=== PATIENT | male | born 1950 | race Caucasian/White ===

== ENCOUNTER → 2018-05-07 08:09 | Outpatient (BNVA) | payer MEDICARE, BC, SELFPAY | PROVIDERS: Visit Provider Student in an Organized Health Care Education/Training Program | DX: Z47.1 Aftercare following joint replacement surgery (principal); Z96.642 Presence of left artificial hip joint | CPT/HCPCS: 99213 ==

== ENCOUNTER 2018-05-07 08:24 | Outpatient (CLI) | payer MEDICARE, BC, SELFPAY ==
--- NOTE | 2018-05-07 08:42 | DI.RAD_ITS ---
SYMPTOMS/DIAGNOSIS: F/U LT JOEL, YEARLY F/U LEFT HIP: Two views were obtained. There is a total hip joint replacement in position on the left. The components appear well seated. No other bony abnormality is seen. Previous right total hip arthroplasty noted in position as well.
== END 2018-05-07 08:44 ==
PROVIDERS: Visit Provider Student in an Organized Health Care Education/Training Program
DX: Z96.642 Presence of left artificial hip joint (principal); Z47.1 Aftercare following joint replacement surgery
CPT/HCPCS: 99213; 73502

== ENCOUNTER → 2022-01-31 14:31 | Outpatient (BNVA) | payer MEDICARE, BC, SELFPAY | PROVIDERS: Visit Provider Student in an Organized Health Care Education/Training Program | DX: M17.12 Unilateral primary osteoarthritis, left knee (principal) | CPT/HCPCS: 99202 ==

== ENCOUNTER 2022-03-14 13:48 | Outpatient (CLI) | payer MEDICARE, BC, SELFPAY ==
--- NOTE | 2022-03-14 13:45 | DI.RAD_ITS ---
Exam(s) XR STANDING ALIGNMENT EXAM: XR STANDING ALIGNMENT CLINICAL HISTORY: PRE OP L TKA. TECHNIQUE: 2D digital imaging was performed. COMPARISON: CR PELVIS AP from 05/02/2017 FINDINGS: 3 views Bilateral hip prostheses again noted. Advanced narrowing medial compartments of both knees, approxim ately equal bilaterally. Milder degenerative changes the lateral. Ankles. No osseous lesions. Bon e density is. Age-appropriate No significant osseous lesions evident IMPRESSION: DATA REPOSITORY: RADIATION DOSE DELIVERED:
--- NOTE | 2022-03-14 14:00 | DI.RAD_ITS ---
Exam(s) XR KNEE LT 1V EXAM: XR KNEE LT 1V CLINICAL HISTORY: PRE OP L TKA. TECHNIQUE: 2D digital imaging was performed. COMPARISON: CR XR knee LT 4V from 12/09/2021 FINDINGS: Single lateral view Advanced degenerative changes, including in patellofemoral compartment. IMPRESSION: DATA REPOSITORY: RADIATION DOSE DELIVERED:
== END 2022-03-14 13:49 | disposition home or self-care (01) ==
PROVIDERS: Visit Provider Physician Assistant
DX: M17.12 Unilateral primary osteoarthritis, left knee (principal); Z96.643 Presence of artificial hip joint, bilateral; Z01.818 Encounter for other preprocedural examination
CPT/HCPCS: 73560; 77073

== ENCOUNTER 2022-03-21 02:29 | Outpatient (CLI) | payer MEDICARE, BC, SELFPAY ==
[2022-03-21 12:15] LABS: Source Nasal/Nares
[2022-03-21 18:52] LABS: COVID-19 PCR Negative (Negative)
== END 2022-03-21 02:30 | disposition home or self-care (01) ==
LOC: LBO 02:29
PROVIDERS: Visit Provider Student in an Organized Health Care Education/Training Program
DX: Z20.822 Contact with and (suspected) exposure to COVID-19 (principal); Z01.818 Encounter for other preprocedural examination
CPT/HCPCS: 36415; 80048; 85027; 87635

== ENCOUNTER 2022-03-21 03:27 | Outpatient (CLI) | payer MEDICARE, BC, SELFPAY ==
[2022-03-21 10:08] LABS: HCT 45.7 % (40.0-50.0); HGB 15.9 g/dL (13.5-17.5); MCH 30.4 pg (27.0-33.0); MCHC 34.8 % (32.0-36.0); MCV 87 fL (80-95); MPV 10.9 fL (8.0-11.0); Platelet Count 193 10^3/uL (130-400); RBC 5.23 10^6/uL (4.36-5.78); RDW 11.9 % (11.8-14.1); RDW-SD 38.3 fL; WBC 6.38 10^3/uL (4.4-10.8)
[2022-03-21 10:33] LABS: Anion Gap 8.2 mmol/L (3-11); BUN 9 mg/dL (7-18); CO2 29.8 mmol/L (21.0-32.0); CREATININE 0.8 mg/dL (0.70-1.30); Calcium 9.1 mg/dL (8.5-10.1); Chloride 105 mmol/L (98-107); Glucose 100 mg/dL (74-106); Sodium 143 mmol/L (136-145)
== END 2022-03-21 03:28 | disposition home or self-care (01) ==
LOC: LBO 03:27
PROVIDERS: Visit Provider Student in an Organized Health Care Education/Training Program
DX: M25.562 Pain in left knee (principal); M17.12 Unilateral primary osteoarthritis, left knee; Z01.818 Encounter for other preprocedural examination; Z01.812 Encounter for preprocedural laboratory examination
CPT/HCPCS: 36415; 80048; 85027

== ENCOUNTER 2022-03-23 07:11 | Day surgery (SDC) | payer MEDICARE, BC, SELFPAY ==
[2022-03-23] VITALS (10 sets, daily range): BP systolic 139–169; BP diastolic 78–94; PULSE 66–87; RESP 12–20; TEMP 36.1–36.7; O2SAT 97–100; BMI 26.6
--- NOTE | 2022-03-23 07:29 | W.PM.DSUDISC ---
Discharge Plan Disposition Patient Disposition: HOME Condition: Good Discharge Details Reason For Visit: Left TKA Attending Provider: Babar Cruz Primary Care Provider: Alis,Local Home Meds and New Rx's Prescriptions: New celecoxib [Celebrex] 200 mg capsule 200 mg PO BID Qty: 60 0RF aspirin 81 mg tablet,delayed release (DR/EC) 81 mg PO BID Qty: 60 0RF pantoprazole [Protonix] 40 mg tablet,delayed release (DR/EC) 40 mg PO DAILY Qty: 30 0RF gabapentin 300 mg capsule 300 mg PO QHS Qty: 14 0RF acetaminophen 500 mg capsule 1,000 mg PO Q8H PRN PRNQty: 90 0RF oxycodone 5 mg tablet 5 mg PO Q4H PRNQty: 18 0RF Discharge Instructions Additional Instructions: Total Knee Discharge Instructions Activity: The most important activity is to walk. You should try to take short walks a few times a day. It is important that when resting you work on keeping the knee straight. Avoid putting a pillow behind the knee as this will encourage flexion. Work on range of motion exercises as provided by Physical Therapy. - Start outpatient physical therapy within 2 weeks. - You should wear the OSCAR hose on both legs for 2 weeks. You may remove these at night. You may also use any compression sock in place of the OSCAR hose. - Utilize [employer] to review exercises, see videos on exercises and obtain basic information pertaining to your surgery and your recovery. Dressing: Remove the James wrap by 2 days after your surgery and put on the OSCAR stocking given to you from the hospital. Keep the surgical dressing (underneath the JAMES wrap) in place for at least one week. After the first week it may be removed and replaced with light gauze and tape or nothing. The wound and dressing may get wet after 3 days but avoid soaking the dressing or otherwise it will need to be changed. Many people prefer covering the dressing with cling wrap (saran wrap) to minimize it from getting soaked. If it gets wet, just pat dry. If it starts to peel off then it will need to be changed. Medications: - You should take Tylenol and anti-inflammatory Celebrex as your primary pain control medications. If the Celebrex is too expensive or not covered, please call the office for another alternative (Advil/Ibuprofen or Naproxen/Aleve) - You have been prescribed a stronger pain medication Oxycodone for breakthrough pain, take as needed as prescribed. - You have also been prescribed a stomach acid reduction agent Pantoprozole to help reduce stomach acid and reflux. - You have been prescribed Gabapentin to take at night for restlessness and nerve pain. - You will be taking Aspirin 81mg twice a day for DVT prevention unless instructed otherwise. - If you have constipation you should take Colace or Miralax (both [id number]). It takes most people 3-4 days to have a bowel movement. Follow-up: 2 weeks If you have any acute concerns or questions, please do not hesitate to contact the office at [phone]. You may contact Dr. Cruz with any questions after hours through the hospital at [phone] or on his cell phone at [phone]. Referrals: Babar Cruz MD [ [facility] STAFF PHYSICIAN] - Equipment/Supplies: Walker Activity:: Activity as Tolerated Remove Dressings/Wound Care:: Do Not Remove Shower/Bathe:: 72 hours Diet:: As Tolerated Discharge Orders Discharge Orders: Discharge Order (Routine); Ordered 03/23/22 Ordered By: Kinjal Womack DS: Diagnosis Discharge Diagnosis (1) Left knee DJD: Status: Acute
[2022-03-23] MEDS: Lactated Ringers 1,000 ML 80 ML IV (07:55)
[2022-03-23] MEDS: Celecoxib 200 MG CAP 400 MG PO (08:09)
[2022-03-23] MEDS: Gabapentin 300 MG CAP PO (08:09)
[2022-03-23] MEDS: Acetaminophen 500 MG TAB 1000 MG PO (08:09)
--- NOTE | 2022-03-23 08:51 | W.ANESPRE ---
General Info Date of Service Date Performed: 03/23/22 Height: 5 ft 7 in Weight: 77.2 kg Body Mass Index (BMI): 26.6 Surgical Procedure: Operation Date: 03/23/22 09:25 Proposed Procedure Side Surgeon p Knee Total Arthroplasty Cementless CR Left Babar Cruz MD Meds Allergies and Home Medications Allergies Allergy/AdvReac Type Severity Reaction Status Date / Time Sulfa (Sulfonamide Allergy Intermediate Skin Rash, Unverified 03/23/22 07:00 Antibiotics) hives Home Medication Medication Instructions Recorded acetaminophen 500 mg capsule 1,000 mg PO Q8H PRN PRN #90 caps 03/23/22 aspirin 81 mg tablet,delayed 81 mg PO BID #60 tabs 03/23/22 release celecoxib 200 mg capsule (Celebrex) 200 mg PO BID #60 caps 03/23/22 gabapentin 300 mg capsule 300 mg PO QHS #14 caps 03/23/22 oxycodone 5 mg tablet 5 mg PO Q4H PRN #18 tabs 03/23/22 pantoprazole 40 mg tablet,delayed 40 mg PO DAILY #30 tabs 03/23/22 release (Protonix) Current Visit Medications: Current Medications Generic Name Dose Route Start Last Admin Trade Name Freq PRN Reason Stop Dose Admin Acetaminophen 1,000 mg 03/23/22 06:00 03/23/22 08:09 Acetaminophen 500 Mg Tab PO 03/23/22 16:00 1,000 mg PREOP JESSEE Administration Acetaminophen 1,000 mg 03/23/22 14:00 Acetaminophen 500 Mg Tab PO TID JESSEE Aspirin 81 mg 03/23/22 20:00 Aspirin E.C. 81 Mg Tabec PO BID JESSEE Celecoxib 400 mg 03/23/22 06:00 03/23/22 08:09 Celecoxib 200 Mg Cap PO 03/23/22 16:00 400 mg PREOP JESSEE Administration Celecoxib 200 mg 03/23/22 20:00 Celecoxib 200 Mg Cap PO BID JESSEE Gabapentin 300 mg 03/23/22 06:00 03/23/22 08:09 Gabapentin 300 Mg Cap PO 03/23/22 16:00 300 mg PREOP JESSEE Administration Gabapentin 300 mg 03/23/22 22:00 Gabapentin 300 Mg Cap PO HS JESSEE Hydromorphone HCl 0.5 mg 03/23/22 07:28 Hydromorphone 2 Mg/Ml Vial IVP Q2H PRN PRN Tranexamic Acid 1,000 mg/ 60 mls @ 360 mls/hr 03/23/22 06:00 Sodium Chloride IVPB 03/23/22 16:00 PREOP JESSEE Ringer's Solution 1,000 mls @ 80 mls/hr 03/23/22 06:00 03/23/22 07:55 IV 04/21/22 23:59 80 mls/hr INFUSION JESSEE Administration Cefazolin Sodium/Dextrose 2 gm in 50 mls @ 100 mls/hr 03/23/22 06:00 Ancef Duplex IVPB 04/21/22 23:59 PREOP JESSEE Cefazolin Sodium/Dextrose 1 gm in 50 mls @ 100 mls/hr 03/23/22 16:00 Ancef Duplex IVPB 03/24/22 08:29 Q8H JESSEE IV Miscellaneous Supplies 1 each 03/23/22 06:00 Iv Access IV 04/21/22 23:59 DIRECTED JESSEE Ondansetron HCl 4 mg 03/23/22 07:28 Ondansetron 4 Mg/2 Ml Vial IVP Q6H PRN PRN Nausea Oxycodone HCl 0 mg 03/23/22 07:28 Oxycodone 5 Mg Tab PO Q3H PRN PRN Pain Sodium Chloride 0 ml 03/23/22 06:00 Normal Saline Flush 10 Ml Syr IV 04/21/22 23:59 PRN PRN Sodium Chloride 0 ml 03/23/22 06:00 Normal Saline 10 Ml Vial IJ 04/21/22 23:59 DIRECTED PRN Sterile Water 0 ml 03/23/22 06:00 Water,Injection,Sterile 10 Ml Vial IJ 04/21/22 23:59 DIRECTED PRN PFSH Active Problems Active Problems: Problem Status Onset Code Left knee DJD M17.12 Broken ankle S82.899A DJD (degenerative joint disease) M19.90 Surgical History Surgical History History of total left hip replacement 05/02/2017 Status post laparoscopic cholecystectomy Status post total replacement of right hip Tobacco Smoking/Tobacco Use Status: Never Alcohol Alcohol Intake: never Substance Use Substance use: Never Substance use type: does not use Vital Signs and Lab Results Vital Signs Most Recent Vital Signs in EMR: Most Recent Vital Signs Temp Pulse Resp BP Pulse Ox 36.5 C 66 18 143/83 H 99 03/23/22 07:15 03/23/22 07:15 03/23/22 07:15 03/23/22 07:15 03/23/22 07:15 Lab Results Blood Type / Crossmatch: No Data to Display Complete Blood Count: White Blood Count 6.38 10^3/uL (4.4-10.8) 03/21/22 09:52 Red Blood Count 5.23 10^6/uL (4.36-5.78) 03/21/22 09:52 Hemoglobin 15.9 g/dL (13.5-17.5) 03/21/22 09:52 Hematocrit 45.7 % (40.0-50.0) 03/21/22 09:52 Platelet Count 193 10^3/uL (130-400) 03/21/22 09:52 Complete Metabolic Panel: Sodium Level 143 mmol/L (136-145) 03/21/22 09:52 Potassium Level 4.0 mmol/L (3.5-5.1) 03/21/22 09:52 Chloride Level 105 mmol/L (98-107) 03/21/22 09:52 Carbon Dioxide Level 29.8 mmol/L (21.0-32.0) 03/21/22 09:52 Blood Urea Nitrogen 9 mg/dL (7-18) 03/21/22 09:52 Creatinine 0.8 mg/dL (0.70-1.30) 03/21/22 09:52 Estimated GFR/1.73 m2 >= 60.00 (mL/min/1.73m2) 03/21/22 09:52 Calcium Level 9.1 mg/dL (8.5-10.1) 03/21/22 09:52 Glucose Level 100 mg/dL (74-106) 03/21/22 09:52 Liver Function Panel: No Data to Display Coagulation Panel: No Data to Display Cardiac Panel: No Data to Display Arterial Blood Gas: No Data to Display Venous Blood Gas: No Data to Display Pancreas Panel: No Data to Display Thyroid Panel: No Data to Display Infectious Disease: Coronavirus (COVID-19)(PCR) Negative (Negative) 03/21/22 10:02 Coronavirus 2019 Source Nasal/Nares 03/21/22 10:02 Blood Cultures: No Data to Display Toxicology Panel: No Data to Display Anesthesia Assessment and Plan Anesthesia History Personal History: No History of Anesthesia Complications Family History: No Family History of Anesthesia Complications Exercise Tolerance Exercise Tolerance: Metabolic Equivalents>4 Pertinent Negatives Pertinent Negatives: No Symptoms of GERD, No Major Cardiovascular Symptoms or Complaints, No Major Pulmonary Symptoms or Complaints and No History of CVA/TIA Cardiac & Pulmonary Exam Cardiac Exam: Normal S1/S2 Heart Sounds Pulmonary Exam: Clear Bilateral Breath Sounds Implantable Cardiac Device Does patient have a Pacemaker or an ICD?: No Airway Exam Known Difficult Airway: No Mallampati Class: 2 Mouth Opening: Narrow (< 3cm) Thyromental Distance: Greater than 3 cm Neck Range of Motion: Full ROM Neck Circumference: Normal Teeth Condition: Normal Dentition Airway Comments: #11 Capped ASA Classification ASA Score: ASA 2 Emergency Case?: No NPO Status NPO Status: NPO Clears >2 hours, Solids >8 hours Anesthesia Plan Resuscitation Status: Full Code Anesthesia Technique: Spinal Anesthesia Airway Planned: Natural Airway Pain Management: Surgeon and patient request nerve block (Adductor Canal Block ) Monitors Used: Standard Monitors
[2022-03-23] MEDS: ceFAZolin 2 GM/50 ML BAG IVPB (09:52)
--- NOTE | 2022-03-23 11:30 | W.ANESNERVE ---
Nerve Block Single Injection Procedure Date and Time Date Performed: 03/23/22 Procedure Start: 09:40 Location Where Procedure Performed Procedure Location: Day Surgery Unit Reason Performed: Postoperative Analgesia Requesting Provider: Babar Cruz Timeout Performed Timeout Performed: Yes Monitoring Used ECG, Blood Pressure and SpO2 Sterility Sterility: Hand Hygiene, Surgical Cap, Surgical Mask, Sterile Gloves, Eye Protection and Chlorhexidine Sedation Given During Procedure Sedation Given (Indicate Dose Given): No Sedation given Patient Mental Status Patient Mental Status: Awake Nerve Block 1st Nerve Block: Laterality: Left Block Type: Adductor Canal Needle / Catheter Used: 100mm SonoPlex II Local Anesthetic Bolus (Indicate Dose Given): Lidocaine used for local infiltration of skin, Injected in 3-5ml increments after negative blood aspiration, Bupivacaine 0.25% Dose:: 20cc and Bupivacaine 0.5% Dose:: 20cc Additives (Indicate Dose Given): None Ultrasound: Sterile probe cover and gel used Ultrasound Image Saved?: Yes Nerve Stimulator: Not Used Paresthesia: None Procedure Tolerated: No Complications and Patient tolerated well Procedure Outcome: Successful Performed By: Loki Clark
--- NOTE | 2022-03-23 13:01 | W.ANESPOSTOP ---
Postoperative Evaluation Date, Time and Location Date Performed: 03/23/22 Time Performed: 13:01 Patient Location: Day Surgery Unit Vital Signs Most Recent Imported Vital Signs: Most Recent Vital Signs Temp Pulse Resp BP Pulse Ox 36.2 C L 66 16 161/94 H 99 03/23/22 12:40 03/23/22 12:40 03/23/22 12:40 03/23/22 12:40 03/23/22 12:40 Pain Score Most Recent Pain Score: Most Recent Pain Score Pain Level 0 03/23/22 12:40 Assessment Mental Status: Awake (Alert & Oriented to Patient Baseline) Airway and Respiratory Function: Patent airway with normal (patient baseline) respiratory exam Cardiovascular Function: Hemodynamically Stable Hydration Status: Adequately Hydrated Nausea & Vomiting: No Nausea or Vomiting Pain: Pain is tolerable per patient Peripheral Nerve Block: Regional nerve block not resolved at time of post operative discharge
--- NOTE | 2022-03-23 13:11 | IN_ITS ---
Date of service: 03/23/22 PT Notes Visit Reasons: Left TKA Physical Therapy Day Surgery Initial Evaluation Date: 03/23/2022 Referring Doctor: VENESSA Mauro PT Orders: PT CONSULT: S/p Ortho surgery Precautions: WBAT on L LE with AD. Patient Profile/Admitting Diagnosis: Maurice is a 71-year-old male with degenerative degenerative joint disease of the left knee and is status post left total knee arthroplasty on postoperative day 0. PMHX: Surgical History?(Updated 03/14/22 @ 14:42 by Ange Belcher) History of total left hip replacement 05/02/2017Status post laparoscopic cholecystectomy Status post total replacement of right hip Social History/Home Situation: Lives with in a private home with 3 steps to enter. 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 Independent with all mobility ADLs prior to surgery. Equipment Owned/DME: None Subjective: Agreeable to PT consult. Reports numbness on the top of his L foot. Denies pain in the L knee at rest and with movement. Complained of being lightheaded and became nauseous after ambulation activity. Objective: General Observation: Supine in bed. GERHARD wrap to L knee. TEDS on R leg. IV in L UE. Mental Status: Alert and oriented x 4 Pain: Denies ROM: Right Lower Extremity: Hip flexion WFL. Hip abduction WFL. Knee flexion WFL. Ankle dorsiflexion WFL. Ankle plantarflexion WFL. Left Lower Extremity: Hip flexion WFL. Hip abduction WFL. Knee flexion 10 degrees to 100 degrees. Knee extension -10 degrees. Ankle dorsiflexion WFL. Ankle plantarflexion WFL. Strength: Right Lower Extremity: Hip flexors 5/5. Hip abductors 5/5. Knee flexors 5/5. Knee extensors 5/5. Ankle dorsiflexors 5/5. Ankle plantarflexors 5/5. Left Lower Extremity:Hip flexors 4/5. Hip abductors 4/5. Knee flexors 3-/5. Knee extensors 3-/5. Ankle dorsiflexors 4-/5. Ankle plantarflexors 5/5. Sensation: Numbness reported in dorsum of R foot Bed Mobility/Transfers: Supine to sit independent Sit to stand contact guard assist Stand to sit stand by assist Bed to chair stand by assist Gait: 100 feet using FWW with step-to gait pattern with stand by assist. Became more lightheaded and nauseous right after he was asked to sit down onto chair to prepare for stair negotiation. Vomited x 2. Nurse Jessica and Nurse Carolina assisted with symptom management. Nurse welding machine operator submerged arc updated. Stairs: After patient felt ready again, he was able to negotiate 6 x 4-inch steps and 4 x 6-inch steps while holding onto 1 rail with stand by assist using safe technique. Nor further reports of worsening nausea and lightheadedness. THERA EX: Reviewed SLR, setting ex for quads and glutes, LAQ, hip abd/add, and ankle DF/PF. Patient and familiar with the [employer] trista on phone. Balance: Static Sitting: Normal Dynamic Sitting: Normal Static Standing: Fair Dynamic Standing: Fair Special Tests: Mobility Limitations Standardized Measure [facility] AM-PAC 6 clicks Basic Mobility Inpatient Short Form: Raw Score: 23 CMS Score: 11% deficit Informed Consent/Education: Patient instructed in purpose of PT consult. Education and training on initial set of exercises that can be done at home have been completed with patient. Assessment: Patient requires the use of FWW for all mobility ADLs to maximize independence and reduce fall risk. Deferred training with bilateral axillary crutches due to report of nausea and a sense of being off-balance. Patient presents with clini tana signs and symptoms consistent with current/admitting diagnoses that have resulted to mobility limitations, gait instability, generalized weakness, and impairment of motor control as demonstrated by the following impairment level findings: 1. Decreased strength to left knee major muscle groups 2. Impaired standing balance 3. Limitation of joint range of motion in left knee Impairments are contributing to the following functional limitations: 1. Inability to safely ambulate without assistive device 2. Increase completion time for mobility ADL performance 3. Increased fall risk Patient is assessed as a 28061 moderate complexity based on the following: History: 71-year-old male with impairment level findings, functional limitations, and past medical history as indicated above Examination: Demonstrable impairment in strength, balance, and mobility level with underlying impairments and functional limitations as documented above Presentation: Evolving Decision Makin moderate complexity Goals: N/A. PT evaluation and 1-2 treatment sessions only for functional mobility training using recommended AD and for HEP instruction. Plan of Care/Treatment Plan: N/A. PT evaluation and 1-2 treatment session only for functional mobility training using recommended AD and for HEP instruction. DISCHARGE RECOMMENDATIONS: [] Home with no services [] [] Home with services [specify] [X] Home with outpatient PT. Home medically cleared by orthopedic surgeon. Will benefit outpatient PT services in order to maximize ADL independence and optimize functional functional outcomes. [] SNF for continued rehabilitation [] [] [facility] [] [] SNF versus LTC based on ability to participate and progress [] TREATMENT CODE/TIME: 43710 x 25 minutes, 64148 times 30 minutes beginning at 13:11 PM. Thank you for the opportunity to participate in the care of this patient. Whit Vu PT, DPT, CLT [facility] [place], [place]
[2022-03-23] MEDS: Normal Saline Flush 10 ML SYR IV (14:00)
[2022-03-23] MEDS: Ondansetron 4 MG/2 ML VIAL IVP (14:00)
--- NOTE | 2022-03-24 06:53 | W.PM.OP ---
Date of service: 03/23/22 Time of Service: 11:30 Operative Note Operative Note DATE OF PROCEDURE: 03/23/22 PRE-OP DIAGNOSIS: Left Knee Osteoarthritis POST-OP DIAGNOSIS: same PROCEDURE: Left Total Knee Replacement SURGEON: Babar Cruz REEL AND REWINDER OPERATOR: Kinjal Womack ANESTHESIA TYPE: Spinal Refer to Anesthesia Record ESTIMATED BLOOD LOSS: 200 PATHOLOGY: none sent TOURNIQUET TIME: 0 COMPLICATIONS: None Patient was transported to: PACU Patient's condition: stable Implants: 1. Depuy Attune Cementless Cruciate Retaining Femoral Component, Size 6 2. Depuy Attune Cementless Rotating Platform Tibial Component, Size 6 3. Depuy Attune 6x8 CR/RP Poly 4. Depuy Attune Patellar Component, Size 38 Indications: I have seen Maurice in clinic for symptoms of knee arthritis, confirmed with radiographic findings. Maurice has exhausted nonoperative methods and was having significant limitations in daily function and desired better function and less pain. I discussed the technical details of a knee replacement. I explained the risks of the procedure to include, but not limited to, bleeding, infection, pain, stiffness, fracture, damage to nerves and vessels, damage to muscles and tendons, loosening, need for repeat procedure, blood clot and cardiopulmonary demise. Despite these risks, Maurice elected to proceed. Findings: There was significant signs of arthritis throughout the knee. Procedure Description: Maurice was greeted in the preoperative holding area where the correct side was identified and marked. The consent was reviewed with the patient and signed. The history and physical was updated. All questions were answered. Preoperative medications were administered: Acetaminophen 1000mg, Celebrex 400mg, and Gabapentin 300mg. An adductor canal block was then administered by the anesthesia team in the PACU. Check was taken back to the operating room. A spinal anesthestic was then administered. The patient was placed into the supine position on the operating room table. A nonsterile tourniquet was placed high onto the leg but only used for cementing. Posts were placed for positioning during the procedure. All bony prominences were well padded. Prophylactic antibiotics in the form of cefazolin were administered. 1g of Tranxemic Acid was given intravenously within 30 minutes of incision. The left leg was then prepped with Chloraprep and draped in a standard fashion with impervious stockinette. A second prep with Chloraprep was performed prior to application of Iodine impregnated skin protection. A timeout to confirm correct identity, side and site, procedure, allergies, anesthesia, and medical concerns was performed. With the knee in some flexion, a midline incision was made overlying the knee. Full thickness skin flaps were raised once the extensor mechanism was encountered. These were raised medially and laterally. Any bleeding was controlled with electrocautery. Once the extensor mechanism was fully exposed, a medial parapatellar arthrotomy was performed in a flexed position. All bleeding from the arthrotomy and the geniculate arteries was coagulated. A medial subperiosteal peel was performed with electrocautery to the midcoronal plane. The fat pad was removed while keeping the patellar tendon protected. The anterior distal femur synovium was removed for later visualization. The ACL and PCL were resected and the anterior horn of the lateral meniscus was transected. The knee was then flexed with the patella everted. Large osteophytes from the tibia were removed. Large osteophytes from the femur were removed. Using a step drill, and based on preoperative templating, the femoral canal was entered. This was done with a step drill without any difficulty. The intramedullary distal femoral cut guide was inserted, set to a 6 degree valgus cut and 9 mm cut thickness. The distal femoral cut guide was then held in position and pinned. With the soft tissues protected, the distal cut was performed. This was passed over a few times to ensure a planar cut. I then turned attention to the tibia. The extramedullary guide was placed onto the leg. The distal aspect was slid medial to adjust for position of center of ankle and stay in line with shaft of the tibia. Approximately 3-5 degrees of posterior slope was kept in the proximal cutting guide. The center of the guide was aligned with the PCL. The stylus was used to assess cut thickness. The medial side, most involved side, was set for a 4mm cut. This was then held in position and pinned into place with 2 additional pins and a cross pin for stability. The medial and lateral collateral ligaments were protected and the cut was performed. With this completed, it was assessed and noted to be of appropriate dimensions. The guide was removed. A spacer block was inserted and the knee was brought into extension. The 6mm spacer block provided full extension, without hyperextension and with stability of both the medial and lateral collateral ligaments was assessed. The pins from the femur and the tibia were then removed. The distal femur was then sized. The anterior stylus was placed onto the lateral ridge of the anterior femur. This indicated a size 6 femur. The external rotation of the guide was adjusted to 3 degrees to match the epicondylar axis, perpendicular to [place]?s line. The 4-in-1 cutting guide was the placed. The posterior medial femur cut was evaluated and appeared of good thickness. The spacer block was inserted underneath the cutting guide and stability was confirmed in 90 degrees of flexion. An william wing was used to confirm appropriate position of the anterior cut to avoid notching. This cutting guide was ensured to be flush on the cut surface and then pinned into place with headed pins. While protecting the soft tissues, quad tendon, and collateral ligaments, the anterior and posterior cuts were performed with a saw. The central two pins were removed and the posterior and anterior chamfers were cut next. The notch-cutting guide was placed. This was pinned to lateralize the femoral component as much as possible while keeping it flush on the cut surface. This was then pinned into position. A reciprocating saw was used to make the notch cut. A rasp smoothed the cut surfaces. The medial and lateral menisci were removed. A trial femoral component was then inserted, impacted down to the cut surfaces, and the lug holes were drilled. A provisional trial tibial component was placed and the knee was brought through range of motion. The polyethylene was trialed until there was good flexion and extension with excellent stability to the medial and lateral collaterals. The patella was tracking without thumbs. A size 8mm polyethylene component provided the best range of motion and stability with less than 2mm gapping with medial and lateral stress and full extension without significant hyperextension. The tibial cut surface was fully exposed. The tibia was then sized as a 6. The tibia had been previously marked during trialing to correspond to the center of the tibial component to help with rotation. The trial was aligned to this valentine, approximately rotated to the medial 1/3rd of the tibial tubercle. The trial was pinned into place. The tibia was prepared with a reamer and a keel punch and lug holes. The knee was then brought into extension and the patella was measured as 31mm. Using the patellar clamp and cut guide, this was resected to a flat surface with at least 13mm of thickness remaining. The size 38 patella fit the best. This was oriented and then clamped into position. The lugs were drilled. The trial components were removed. The final components were opened on the back table. The periosteal and capsular tissues, especially posteriorly, around the knee were then systematically injected with a periarticular cocktail consisting of 246mg of Ropivacaine, 0.5mg of Epinephrine, 0.08mg of Clonidine, and 30mg of Ketorolac, diluted to 100cc. On the back table, with the implants opened, the cement was mixed. One batch of high viscosity cement was prepared with vacuum assistance. After the cement was ready a small amount was placed on the cut surface of the patella and the patellar button was clamped into position and held. While the cement was hardening, the cementless knee components were placed. Starting with the tibial component, the tibia was subluxed anteriorly and the lug holes of the component were lined up. The tibia was then impacted with an impactor and mallet until the tibial component was in contact with the tibia. The final polyethylene component was inserted. Then, the femoral component was inserted. The lug holes were aligned and the component was impacted into position. The knee was irrigated with Surgiphor Betadine solution. This was allowed to sit in the knee for 3 minutes and then it was irrigated out with saline. After the cement had finally cured, approximately 15min, the clamp was removed from the patella and the knee was taken through range of motion. The patella was tracking with a no-thumbs technique. The capsule was then reapproximated with a No. 1 Vicryl at multiple locations. The capsule was finally closed with a No. 2 Stratafix, barbed suture. The second dosing of 1g TXA was started. Deep tissues were then reapproximated with 0 Vicryl and 2-0 Vicryl. The skin was closed with a running 3-0 Monocryl in a subcuticular fashion. This was reinforced with skin glue. A Mepilex silver dressing was applied along with a [id number] GERHARD wrap. A CryoCuff was applied. Maurice was transferred to the hospital bed without difficulty an suffering no apparent complication. Maurice has a good prognosis. Physical therapy will start today and without restrictions, weight-bearing as tolerated. Aspirin 81mg BID will be used for DVT prophylaxis.
== END 2022-03-23 14:52 | disposition home or self-care (01) ==
PROVIDERS: Visit Provider Student in an Organized Health Care Education/Training Program
PROC: (CPT 27447; principal; 2022-03-23 09:15)
DX: M17.12 Unilateral primary osteoarthritis, left knee (principal); Z96.643 Presence of artificial hip joint, bilateral
CPT/HCPCS: 27447; C1776; 76942; 97162; 97530; J0690; J1100; J2250; J2405

== ENCOUNTER 2022-04-07 10:54 | Outpatient (CLI) | payer MEDICARE, BC, SELFPAY ==
--- NOTE | 2022-04-07 10:15 | DI.RAD_ITS ---
Exam(s) XR STANDING ALIGNMENT EXAM: XR STANDING ALIGNMENT CLINICAL HISTORY: 1ST POST OP L TKA. TECHNIQUE: 2D digital imaging was performed. COMPARISON: CR XR STANDING ALIGNMENT from 03/14/2022 FINDINGS: 3 views There has been interval placement of a left knee prosthesis which appears satisfactory position align ment. There is moderate-advanced narrowing of the medial compartment of the opposite-right knee agai n noted. There are bilateral hip prostheses again noted which appears satisfactory. There are no new ankle fi ndings. No fractures. No osseous lesions. IMPRESSION: DATA REPOSITORY: RADIATION DOSE DELIVERED:
--- NOTE | 2022-04-07 10:15 | DI.RAD_ITS ---
Exam(s) XR KNEE LT 1V EXAM: XR KNEE LT 1V CLINICAL HISTORY: 1ST POST OP L TKA. TECHNIQUE: 2D digital imaging was performed. COMPARISON: CR XR KNEE LT 1V from 03/14/2022 FINDINGS: Single lateral view There has been interval arthroplasty. On this lateral view the position alignment of the components appear satisfactory without evidence of fracture or loosening. IMPRESSION: DATA REPOSITORY: RADIATION DOSE DELIVERED:
== END 2022-04-07 10:55 | disposition home or self-care (01) ==
LOC: DIORS 10:55
PROVIDERS: Visit Provider Student in an Organized Health Care Education/Training Program
DX: Z96.652 Presence of left artificial knee joint (principal); Z47.1 Aftercare following joint replacement surgery
CPT/HCPCS: 73560; 77073

== ENCOUNTER → 2022-05-09 09:51 | Outpatient (BNVA) | payer MEDICARE, BC, SELFPAY | PROVIDERS: Visit Provider Student in an Organized Health Care Education/Training Program | DX: Z47.1 Aftercare following joint replacement surgery (principal); Z96.652 Presence of left artificial knee joint ==

== ENCOUNTER → 2022-06-20 08:45 | Outpatient (BNVA) | payer MEDICARE, BC, SELFPAY | PROVIDERS: Visit Provider Student in an Organized Health Care Education/Training Program | DX: Z47.1 Aftercare following joint replacement surgery (principal); Z96.652 Presence of left artificial knee joint ==

== ENCOUNTER 2023-03-23 09:05 | Outpatient (CLI) | payer MEDICARE, BC, SELFPAY ==
--- NOTE | 2023-03-23 07:45 | DI.RAD_ITS ---
Exam(s) XR KNEE LT 2V AP,LAT EXAM: XR KNEE LT 2V AP,LAT CLINICAL HISTORY: annual f/u L TKA. TECHNIQUE: 2D digital imaging was performed. COMPARISON: CR XR KNEE LT 1V from 03/14/2022 CR XR STANDING ALIGNMENT from 04/07/2022 CR XR KNEE LT 1V from 04/07/2022 FINDINGS: Two views Stable position alignment of the components of the prosthesis. No fracture or loosening evident. IMPRESSION: Stable satisfactory appearance. DATA REPOSITORY: RADIATION DOSE DELIVERED:
== END 2023-03-23 09:06 | disposition home or self-care (01) ==
LOC: DIORS 09:06
PROVIDERS: Visit Provider Student in an Organized Health Care Education/Training Program
DX: Z96.652 Presence of left artificial knee joint (principal); Z47.1 Aftercare following joint replacement surgery
CPT/HCPCS: 99213; 73560